=== PATIENT | male | born 1965 ===

== ENCOUNTER 2020-05-02 23:27 | Emergency (ER) | payer SELFPAY ==
[~2020-05-02] VITALS: Ht 167.6 cm; Wt 75.0 kg
[2020-05-03 01:00] VITALS: BP 100/62
== END 2020-05-03 01:20 | DRG 605 ==
LOC: ED 23:27
DX: S00.03XA Contusion of scalp, initial encounter (principal); Y04.0XXA Assault by unarmed brawl or fight, initial encounter; Y92.009 Unspecified place in unspecified non-institutional (private) residence as the place of occurrence of the external cause